=== PATIENT | male | born 1980 | race Caucasian/White ===

== ENCOUNTER 2018-05-31 13:36 | Emergency (ER) | payer OTHER, SELFPAY ==
--- NOTE | 2018-05-31 14:13 | RAD ---
Exam: XR Foot Rt 3 View STANDARD HISTORY: Medial mid right foot pain. COMPARISON: None FINDINGS: Osteoarthritis involves the first metatarsal phalangeal joint. There is a linear osseous density seen medially at the level of the first tarsal metatarsal joint onl y seen on the oblique view which is suggestive of a small avulsion fracture. This is at site of soft tissue swelling. No additional fracture seen, and there is no evidence of a dislocation. IMPRESSION: 1. Tiny avulsion fracture seen at the dorsal medial aspect of the first tarsal metatarsal joint. Exac t donor site is difficult to delineate on this exam. There is overlying subcutaneous soft tissue swelling. 2. Osteoarthritis right first metatarsal-phalangeal joint.
== END 2018-05-31 14:40 | disposition home or self-care (01) ==
LOC: MADERS 13:36
DX: S92.311A Displaced fracture of first metatarsal bone, right foot, initial encounter for closed fracture (principal); W22.8XXA Striking against or struck by other objects, initial encounter

== ENCOUNTER 2022-11-22 11:00 | Emergency (ER) | payer OTHER, SELFPAY ==
[2022-11-22] MEDS ORDERED: Ondansetron PF 4 MG/2 ML Vial ONE (11:05)
[2022-11-22] MEDS ORDERED: Sodium Chloride 0.9% 1,000 ML ONE ×2 (11:05→12:02)
[2022-11-22] MEDS ORDERED: Ketorolac Tromethamine 30 MG/ML VIAL ONE (11:05)
[2022-11-22] MEDS ORDERED: Morphine 4 MG/ML VIAL ONE (11:14)
[2022-11-22 11:18] LABS: #Basophils 0.1 thou/uL (0.0-0.2); #Eosinphils 0.2 thou/uL (0.0-0.7); #Monocytes 0.6 thou/uL (0.11-0.59); #Neutrophils 5.4 thou/uL (1.40-6.50); %Basophils 1.4 % (0.0-1.0); %Eosinophils 2.6 % (0.0-10.0); %Lymphocytes 24.1 % (21.0-51.0); %Monocytes 6.7 % (0.0-10.0); %Neutrophils 65.3 % (42.0-75.0); Hematocrit 50.6 % (42.0-52.0); Hemoglobin 16.3 g/dL (14.0-18.0); Mean Corpuscular HGB CONC 32.2 g/dL (32.0-36.0); Mean Platelet Volume 7.1 fL (7.4-10.4); Platelet Count 354 10x3/uL (130-400); RBC Distribution Width 12.3 % (11.5-14.5); Red Blood Cell (RBC) Count 5.62 mill/uL (4.70-6.10); White Blood Cell (WBC) Count 8.2 10x3/uL (4.8-10.8)
[2022-11-22 11:32] LABS: ALT (SGPT) 29 U/L (8-55); AST (SGOT) 19 U/L (5-34); Albumin 4.9 g/dL (3.5-5.0); Alkaline Phosphatase 61 U/L (40-110); Anion Gap 17 mmol/L (10-20); BUN (Urea Nitrogen) 12 mg/dL (8.9-20.6); Bilirubin, Total 0.5 mg/dL (0.2-1.2); Calc. Creatinine Clearance 0 mL/min (70-130); Calcium 9.9 mg/dL (7.8-10.44); Carbon Dioxide 23 mmol/L (22-29); Chloride 104 mmol/L (98-107); Estimated GFR 75; Glucose 145 mg/dL (70-105); Potassium 3.9 mmol/L (3.5-5.1); Protein, Total 7.9 g/dL (6.0-8.3); Sodium 140 mmol/L (136-145)
[2022-11-22 12:28] LABS: Bilirubin Small (Negative); Blood, Urine Large (Negative); Clarity Slightly Cloudy (Clear); Glucose, Urine (Dipstick) Negative (Negative); Ketone, Urine Trace mg/dL (Negative); Leukocyte Negative (Negative); Nitrite Negative (Negative); Protein, Urine (Dipstick) > or equal to 300 mg/dL (Neg-Trace); Urobilinogen 0.2 mg/dL (Less than 2); pH, Urine 5.5 (5.0-9.0)
[2022-11-22 12:29] LABS: CAUTI Indications for Culture Dysuria,urgency,freq; Specific Gravity, Urine 1.036 (1.002-1.036)
[2022-11-22 12:30] LABS: Bacteria/HPF 2+ HPF (None Seen)
[2022-11-22 12:33] LABS: Urine Culture Reflex No No
== END 2022-11-22 12:52 | disposition home or self-care (01) ==
LOC: MADERS 11:00
DX: N13.2 Hydronephrosis with renal and ureteral calculous obstruction (principal)
CPT/HCPCS: 74176; 80053; 81001; 85025; 96361; 96374; 96375; J1885; J2270; J2405; J7050

== ENCOUNTER 2023-08-19 11:11 | Emergency (ER) | payer OTHER ==
[2023-08-19] MEDS ORDERED: Ketorolac Tromethamine 30 MG (1 mL) VIAL ONE (11:32)
[2023-08-19 11:35] LABS: Bilirubin Negative (Negative); Blood, Urine Trace (Negative); Clarity Clear (Clear); Glucose, Urine (Dipstick) Negative (Negative); Ketone, Urine Negative (Negative); Leukocyte Negative (Negative); Nitrite Negative (Negative); Protein, Urine (Dipstick) Negative (Neg-Trace); Specific Gravity, Urine 1.015 (1.005-1.030); Urobilinogen 0.2 mg/dL (Less than 2); pH, Urine 7.5 (5.0-9.0)
[2023-08-19 11:41] LABS: Bacteria/HPF Rare-Few HPF (None Seen); CAUTI Indications for Culture Pelvic or flank pain; RBC/HPF 0-3 HPF (0-3); Squamous Epithelial 0-3 HPF (0-3); Urine Culture Reflex No No; WBC/HPF 0-3 HPF (0-3)
[2023-08-19 12:31] LABS: #Basophils 0.1 thou/uL (0.0-0.2); #Eosinphils 0.2 thou/uL (0.0-0.7); #Monocytes 0.6 thou/uL (0.11-0.59); #Neutrophils 5.1 thou/uL (1.40-6.50); %Basophils 1.1 % (0.0-1.0); %Neutrophils 63.9 % (42.0-75.0); Hematocrit 46.3 % (42.0-52.0); Hemoglobin 15.1 g/dL (14.0-18.0); Mean Corpuscular HGB CONC 32.7 g/dL (32.0-36.0); Mean Corpuscular Hemoglobin 29.1 pg (27.0-31.0); Mean Corpuscular Volume 89.2 fl (78.0-98.0); Mean Platelet Volume 6.2 fL (7.4-10.4); Platelet Count 282 10x3/uL (130-400); RBC Distribution Width 12.1 % (11.5-14.5); Red Blood Cell (RBC) Count 5.19 mill/uL (4.70-6.10); White Blood Cell (WBC) Count 7.9 10x3/uL (4.8-10.8)
[2023-08-19 12:39] LABS: Prothrombin Time 12.9 sec (12.0-14.7)
[2023-08-19 12:40] LABS: PTT 25.5 sec (22.9-36.1)
[2023-08-19 12:49] LABS: ALT (SGPT) 35 U/L (8-55); AST (SGOT) 16 U/L (5-34); Albumin 4.2 g/dL (3.5-5.0); Alkaline Phosphatase 52 U/L (40-110); Anion Gap 15 mmol/L (10-20); BUN (Urea Nitrogen) 8 mg/dL (8.9-20.6); Bilirubin, Total 0.4 mg/dL (0.2-1.2); Calc. Creatinine Clearance 0 mL/min (70-130); Calcium 9.4 mg/dL (7.8-10.44); Carbon Dioxide 21 mmol/L (22-29); Chloride 106 mmol/L (98-107); Estimated GFR 109; Globulin 2.8 g/dL (2.4-3.5); Glucose 87 mg/dL (70-105); Potassium 3.9 mmol/L (3.5-5.1); Sodium 138 mmol/L (136-145)
== END 2023-08-19 12:58 | disposition home or self-care (01) ==
LOC: MADERS 11:11
DX: R10.9 Unspecified abdominal pain (principal); R31.9 Hematuria, unspecified
CPT/HCPCS: 36415; 74176; 80053; 81001; 83605; 85025; 85610; 85730; J1885

== ENCOUNTER 2025-01-27 17:49 | Emergency (ER) | payer OTHER ==
[2025-01-27 18:10] LABS: #Basophils 0.2 thou/uL (0.0-0.2); #Eosinophils 0.4 thou/uL (0.0-0.7); #Lymphocytes 3.9 thou/uL (1.20-3.40); #Monocytes 0.8 thou/uL (0.11-0.59); #Neutrophils 6.2 thou/uL (1.40-6.50); %Basophils 1.7 % (0.0-1.0); %Eosinophils 3.9 % (0.0-10.0); %Lymphocytes 33.7 % (21.0-51.0); %Monocytes 7.1 % (0.0-10.0); %Neutrophils 53.6 % (42.0-75.0); Hematocrit 51.6 % (42.0-52.0); Hemoglobin 16.4 g/dL (14.0-18.0); Mean Corpuscular Hemoglobin 28.8 pg (27.0-31.0); Mean Corpuscular Volume 90.5 fl (78.0-98.0); Platelet Count 486 10x3/uL (130-400); Red Blood Cell (RBC) Count 5.71 mill/uL (4.70-6.10); White Blood Cell (WBC) Count 11.6 10x3/uL (4.8-10.8)
[2025-01-27] MEDS ORDERED: Ketorolac Tromethamine 30 MG (1 mL) VIAL ONE (18:14)
[2025-01-27 18:25] LABS: ALT (SGPT) 36 U/L (Less than 45); AST (SGOT) 29 U/L (11-34); Albumin 5.0 g/dL (3.1-4.5); Alkaline Phosphatase 69 U/L (40-110); Anion Gap 18 mmol/L (10-20); BUN (Urea Nitrogen) 12 mg/dL (8.9-20.6); Bilirubin, Total 0.3 mg/dL (0.3-1.2); CK (CPK) 93 U/L (30-200); Calc. Creatinine Clearance 0 mL/min (70-130); Calcium 9.8 mg/dL (7.8-10.44); Carbon Dioxide 22 mmol/L (22-29); Chloride 104 mmol/L (98-107); Globulin 3.0 g/dL (2.4-3.5); Glucose 115 mg/dL (70-105); Potassium 3.8 mmol/L (3.5-5.1); Sodium 140 mmol/L (136-145)
[2025-01-27] MEDS ORDERED: Acetaminophen 500 MG TAB ONE (19:01)
== END 2025-01-27 23:00 | disposition short-term general hospital (02) ==
LOC: MADERS 17:49
DX: T23.312A Burn of third degree of left thumb (nail), initial encounter (principal); T23.252A Burn of second degree of left palm, initial encounter; T23.262A Burn of second degree of back of left hand, initial encounter; T22.212A Burn of second degree of left forearm, initial encounter; T25.222A Burn of second degree of left foot, initial encounter; T31.0 Burns involving less than 10% of body surface; Z23 Encounter for immunization; X10.2XXA Contact with fats and cooking oils, initial encounter
CPT/HCPCS: 80053; 82550; 85025; 90471; 90715; 96374; 96375; 96376; J1885; J3010; J7120